=== PATIENT | male | born 1945 | race Caucasian/White ===

== ENCOUNTER 2017-04-08 15:07 | Observation (INO) | payer OTHER ==
[~2017-04-08] VITALS: Ht 180.3 cm; Wt 103.0 kg
[~2017-04-08 15:07] MED LIST: SODIUM CHLORIDE 0.9% 1000ML 1,000 ML IV SCH
[2017-04-08] MEDS ORDERED: PRLSR20 PO (15:23)
[2017-04-08] MEDS ORDERED: GLC850 PO (15:23)
[2017-04-08] MEDS ORDERED: LOSA1TAB38 PO (15:23)
[2017-04-08] MEDS ORDERED: ATOR-26 PO (15:23)
[2017-04-08] MEDS ORDERED: MELO15TA4 PO (15:23)
[2017-04-08] MEDS ORDERED: GLIP5TAB3 PO (15:23)
[2017-04-08] MEDS ORDERED: ASPI81TA28 PO (15:24)
--- NOTE | 2017-04-08 15:27 | DIAGNOSTIC IMAGING REPORT ---
CT SCAN OF THE BRAIN WITHOUT IV CONTRAST CLINICAL HISTORY: Strokelike symptoms. COMPARISON STUDY: No priors. TECHNIQUE: Unenhanced axial CT scan of the brain is performed from the vertex to the skull base. CT DOSE: 765.09 mGycm FINDINGS: Brain parenchyma: There are age-related involutional changes noting [id number] patchy subcortical and periventricular microangiopathic change. There is no hemorrhage, mass effect, or evidence of acute territorial ischemia by CT criteria. Christine-white matter is preserved. No extra-axial fluid collection is seen. Ventricles, sulci, cisterns: Prominent secondary to involutional change. Intracranial vasculature: There is atherosclerotic calcification of the cavernous carotid and vertebral arteries. Calvarium: Unremarkable. Sinuses and mastoids: Mucosal thickening is seen within the ethmoid and sphenoid sinuses. The remaining visualized paranasal sinuses are clear. The mastoid air cells are well pneumatized. Orbits: The bony orbits are grossly intact. IMPRESSION: There is no hemorrhage, mass effect, or evidence of acute territorial ischemia by CT criteria. Electronically signed by: Chin Arnett M.D. 04/08/2017 3:25 PM Dictated Date/Time: 04/08/2017 3:23 PM
[2017-04-08 15:38] LABS: BASO % 0.5 %; BASO ABS # 0.04 K/uL (0-0.2); COMPLETE YES; HEMATOCRIT 45.7 % (42-52); IG% 0.5 %; LYMPH ABS # 1.25 K/uL (1.2-3.4); MEAN CELL VOLUME 90.5 fL (80-100); MEAN CORPUSCULAR HEMOGLOBIN 31.1 pg (25-34); MEAN CORPUSCULAR HGB CONC 34.4 g/dl (32-36); MEAN PLATELET VOLUME 11.6 fL (7.4-10.4); MONO % 9.8 %; NEUT % 69.2 %; PLATELET COUNT 234 K/uL (130-400); RED BLOOD COUNT 5.05 M/uL (4.7-6.1); WHITE BLOOD COUNT 8.35 K/uL (4.8-10.8)
[2017-04-08 15:49] LABS: ISTAT CREATININE 1.5 mg/dl (0.6-1.3); ISTAT IONIZED CALCIUM 1.18 mmol/l (1.12-1.32)
--- NOTE | 2017-04-08 15:49 | DIAGNOSTIC IMAGING REPORT ---
CHEST ONE VIEW PORTABLE HISTORY: 72 years-old Male acute strokelike symptoms. COMPARISON: None available TECHNIQUE: Portable upright AP view of the chest FINDINGS: Cardiac silhouette is enlarged. Subsegmental bibasilar opacities suggest atelectasis. There is no pneumothorax, pleural effusion, focal airspace consolidation or overt pulmonary edema. There is atherosclerosis of the aorta. The bones are grossly intact. IMPRESSION: Mild cardiomegaly without overt pulmonary edema. The above report was generated using voice recognition software. It may contain grammatical, syntax or spelling errors. Electronically signed by: Kendrick Moreno M.D. 04/08/2017 3:48 PM Dictated Date/Time: 04/08/2017 3:47 PM
[2017-04-08 15:58] LABS: BLOOD UREA NITROGEN 32 mg/dl (7-18); BUN/CREATININE RATIO 17.5 (10-20); CALCIUM 8.9 mg/dl (8.5-10.1); CARBON DIOXIDE 27 mmol/L (21-32); CHLORIDE 107 mmol/L (98-107); GLUCOSE 230 mg/dl (70-99); SODIUM 140 mmol/L (136-145)
[2017-04-08 16:00] LABS: PROTHROMBIN TIME (PATIENT) 10.5 SECONDS (9.0-12.0)
[2017-04-08 16:02] LABS: CKMB/CK RATIO 1.6 (0-3.0)
[2017-04-08] MEDS: SODIUM CHLORIDE 0.9% 1000ML 1,000 ML IV SCH (16:27)
[2017-04-08] MEDS ORDERED: ALUMINUM/MAGNESIUM/SIMETH (MAALOX MAX) 30 ML UDC PO PRN (16:30)
[2017-04-08] MEDS ORDERED: MAGNESIUM HYDROXIDE SUSP 30 ML UDC PO PRN (16:30)
[2017-04-08] MEDS ORDERED: ONDANSETRON INJ 2 MG/ML 2 ML VIAL IV PRN (16:30)
[2017-04-08] MEDS ORDERED: PHARMACIST DISCHARGE MED REC CONSULT PRN (16:30)
[2017-04-08] MEDS ORDERED: HydrALAZINE HCL 20 MG/ML VIAL IV. PRN (16:30)
[2017-04-08] MEDS ORDERED: ACETAMINOPHEN 325 MG TAB PO PRN (16:30)
[2017-04-08] MEDS ORDERED: NITROGLYCERIN 0.4 MG SL PER TAB CHARGE SL PRN (16:30)
[2017-04-08] MEDS ORDERED: POLYETHYLENE (MIRALAX) 17 GM PACK PO PRN (16:30)
--- NOTE | 2017-04-08 16:52 | History and Physical ---
History & Physical Date & Time of Service: Apr 08, 2017 at 16:36 Chief Complaint: Stroke Primary Care Physician: No Doctor, Assigned History of Present Illness Source: patient, family (/friend at bedside ), hospital records Patient is a pleasant 72 y/o male, with PMHx of HTN, T2DM, dyslipidemia, h/o TIA , and GERD, who presented to the ED because of stoke-like symptoms. Patient is from [place], [place]; they are here camping and visiting the [facility]. Patient was at the [facility] this afternoon when he started to develop lightheadedness/dizziness. His and family friend then sat the patient on a bench. They noticed he was disoriented and having difficulty speaking. Currently , denies any complaints. /family state patient has been back to baseline since the arrival to ED. He notes he has a h/o TIAs x3-4. Symptoms are similar. Denies any cardiac history, such as TN, a.fib, or other heart arrhythmias- does not follow with a occupational health nurse supervisor. Denies h/o DVT/PE. He has been eating and drinking OK. Admits he does not take his BSG routinely. +numbness to LUE- ongoing issue. Patient denies any fever, chills, sweats, vision changes, CP, palpitations, edema, SOB, wheezing, cough, abdominal pain, nausea, vomiting, diarrhea, urinary symptoms, melena, tingling, weakness, muscle/joint pain, anxiety/depression, active bleeding, or new skin discoloration/changes. Past Medical/Surgical History Medical Problems: HTN T2DM dyslipidemia h/o TIA GERD Surgical history: EGD Family History Denies pertinent family history Social History Smoking Status: Former Smoker Marital Status: Housing status: lives with family Allergies Coded Allergies: Penicillins (Unverified Allergy, Unknown, THROAT CLOSES, 04/08/17) Home Medications Scheduled Aspirin (Aspirin Ec), 81 MG PO QAM Atorvastatin (Lipitor), 80 MG PO HS Glipizide (Glucotrol), 7.5 MG PO BID Losartan Potassium (Cozaar), 50 MG PO DAILY Meloxicam (Meloxicam), 15 MG PO DAILY Metformin HCl (Metformin HCl), 850 MG PO TID Omeprazole (Prilosec), 20 MG PO QAM Physical Exam Vital Signs Date Time Temp Pulse Resp B/P (MAP) Pulse Ox O2 Delivery O2 Flow Rate FiO2 04/08/17 15:41 91 Room Air 04/08/17 15:41 37.1 97 24 163/114 92 Room Air 04/08/17 15:14 96 General Appearance: no apparent distress, + obese Head: normocephalic, atraumatic Eyes: normal inspection, PERRL ENT: hearing grossly normal Neck: supple Respiratory/Chest: lungs clear, normal breath sounds, no respiratory distress, no accessory muscle use Cardiovascular: regular rate, rhythm, no JVD, normal peripheral pulses Abdomen/GI: normal bowel sounds, non tender, soft Back: normal inspection Extremities/Musculoskelatal: no calf tenderness, no pedal edema, normal range of motion Neurologic/Psych: no motor/sensory deficits, alert, normal mood/affect, oriented x 3, + pertinent finding (negative pronator drift, no facial droop ) Skin: normal color, warm/dry, no rash Diagnostics Laboratory Results Results Past 24 Hours Test 04/08/17 15:14 04/08/17 15:27 04/08/17 15:36 Range/Units Bedside Prothrombin Time INR 1.1 0.9-1.1 White Blood Count 8.35 4.8-10.8 K/uL Red Blood Count 5.05 4.7-6.1 M/uL Hemoglobin 15.7 14.0-18.0 g/dL Hematocrit 45.7 42-52 % Mean Corpuscular Volume 90.5 80-100 fL Mean Corpuscular Hemoglobin 31.1 25-34 pg Mean Corpuscular Hemoglobin Concent 34.4 32-36 g/dl Platelet Count 234 130-400 K/uL Mean Platelet Volume 11.6 7.4-10.4 fL Neutrophils (%) (Auto) 69.2 % Lymphocytes (%) (Auto) 15.0 % Monocytes (%) (Auto) 9.8 % Eosinophils (%) (Auto) 5.0 % Basophils (%) (Auto) 0.5 % Neutrophils # (Auto) 5.78 1.4-6.5 K/uL Lymphocytes # (Auto) 1.25 1.2-3.4 K/uL Monocytes # (Auto) 0.82 0.11-0.59 K/uL Eosinophils # (Auto) 0.42 0-0.5 K/uL Basophils # (Auto) 0.04 0-0.2 K/uL RDW Standard Deviation 45.4 36.4-46.3 fL RDW Coefficient of Variation 13.8 11.5-14.5 % Immature Granulocyte % (Auto) 0.5 % Immature Granulocyte # (Auto) 0.04 0.00-0.02 K/uL Prothrombin Time 10.5 9.0-12.0 SECONDS Prothromb Time International Ratio 1.0 0.9-1.1 Activated Partial Thromboplast Time 25.7 21.0-31.0 SECONDS Partial Thromboplastin Ratio 1.0 Sodium Level 140 136-145 mmol/L Potassium Level 5.0 3.5-5.1 mmol/L Chloride Level 107 98-107 mmol/L Carbon Dioxide Level 27 21-32 mmol/L Anion Gap 6.0 18.0 16-25 mmol/L Blood Urea Nitrogen 32 7-18 mg/dl Creatinine 1.80 0.60-1.40 mg/dl Est Creatinine Clear Calc Drug Dose 47.1 ml/min Estimated GFR () 43.2 Estimated GFR (Non- 37.3 BUN/Creatinine Ratio 17.5 10-20 Random Glucose 230 70-99 mg/dl Calcium Level 8.9 8.5-10.1 mg/dl Total Creatine Kinase 74 39-308 U/L Creatine Kinase MB 1.2 0.5-3.6 ng/ml Creatine Kinase MB Ratio 1.6 0-3.0 Troponin I < 0.015 0-0.045 ng/ml Bedside Hemoglobin 16.0 14.0-18.0 g/dl Bedside Hematocrit 47 42-52 % Bedside Sodium 141 135-144 mEq/L Bedside Potassium 4.9 3.3-5.0 mEq/L Bedside Chloride 104 101-112 mEq/L Bedside Total CO2 24 24-31 mEq/l Bedside Blood Urea Nitrogen 34 7-18 mg/dl Bedside Creatinine 1.5 0.6-1.3 mg/dl Bedside Glucose (other) 229 70-99 mg/dl Bedside Ionized Calcium (Anton) 1.18 1.12-1.32 mmol/l Diagnostic Radiology CT SCAN OF THE BRAIN WITHOUT IV CONTRAST CLINICAL HISTORY: Strokelike symptoms. COMPARISON STUDY: No priors. TECHNIQUE: Unenhanced axial CT scan of the brain is performed from the vertex to the skull base. CT DOSE: 765.09 mGycm FINDINGS: Brain parenchyma: There are age-related involutional changes noting [id number] patchy subcortical and periventricular microangiopathic change. There is no hemorrhage, mass effect, or evidence of acute territorial ischemia by CT criteria. Christine-white matter is preserved. No extra-axial fluid collection is seen. Ventricles, sulci, cisterns: Prominent secondary to involutional change. Intracranial vasculature: There is atherosclerotic calcification of the cavernous carotid and vertebral arteries. Calvarium: Unremarkable. Sinuses and mastoids: Mucosal thickening is seen within the ethmoid and sphenoid sinuses. The remaining visualized paranasal sinuses are clear. The mastoid air cells are well pneumatized. Orbits: The bony orbits are grossly intact. IMPRESSION: There is no hemorrhage, mass effect, or evidence of acute territorial ischemia by CT criteria. Electronically signed by: Chin Arnett M.D. 04/08/2017 3:25 PM Dictated Date/Time: 04/08/2017 3:23 PM The status of this report is Signed. Draft = Not yet reviewed or approved by Radiologist. Signed = Reviewed and approved by Radiologist. CHEST ONE VIEW PORTABLE HISTORY: 72 years-old Male acute strokelike symptoms. COMPARISON: None available TECHNIQUE: Portable upright AP view of the chest FINDINGS: Cardiac silhouette is enlarged. Subsegmental bibasilar opacities suggest atelectasis. There is no pneumothorax, pleural effusion, focal airspace consolidation or overt pulmonary edema. There is atherosclerosis of the aorta. The bones are grossly intact. IMPRESSION: Mild cardiomegaly without overt pulmonary edema. The above report was generated using voice recognition software. It may contain grammatical, syntax or spelling errors. Electronically signed by: Kendrick Moreno M.D. 04/08/2017 3:48 PM Dictated Date/Time: 04/08/2017 3:47 PM The status of this report is Signed. Draft = Not yet reviewed or approved by Radiologist. Signed = Reviewed and approved by Radiologist. <AttendingPhy></AttendingPhy> <FamilyPhy>No Doctor, Assigned</FamilyPhy> < PrimaryPhy>No Doctor, Assigned</PrimaryPhy> <UnitNumber>[id number]</UnitNumber> <VisitNumber>[id number] Impression Assessment and Plan Patient is a pleasant 72 y/o male, with PMHx of HTN, T2DM, dyslipidemia, h/o TIA , and GERD, who presented to the ED because of stoke-like symptoms. TIA w/ h/o TIA: - Admit tot tele for cardiac monitoring - Trend cardiac enzymes- initial trop negative - Continue Lipitor 80 mg HS- check lipid panel - ASA 81 mg daily increased to 325 mg daily - Obtain MRI brain, bilateral carotid US, ECHO - Stroke protocol: -- PT/OT and speech evaluation -- Aspiration/fall precautions -- Dysphagia screen, advance diet as tolerated -- Routine neuro checks -- Elevate HOB T2DM: - Hold Metformin and Glipizide - BSG ACHS and sliding insulin scale - Check HgbA1c HTN: - Hold Losartan 50 mg daily due to Cr. 1.80- unsure of baseline - Hydralazine 10 mg IV q6 hrs PRN sbp >180 or dbp >100 ?CKD stage III- unsure of baseline Cr: - IV NSS @ 125 ml/hr - Follow PRP GERD: Protonix- resume Prilosec at discharge DVT prophylaxis: Heparin SQ BID Code Status: LEVEL I, FULL Dispo: From home, lives w/ - no discharge needs anticipated i personally examined pt and verified all luna points w T Ernstk PAC feeling better now - unsteady and trouble w getting words out earlier - similar to prior TIAs. thinks A1c around 8. notes that he believes a lot of his medical problems relate to agent orange exposure in [place]. vitals noted nad breathing unlabored no noted neurologic deficits now skin no rashes no pallor or icterus labs/diagnostics noted, awaiting A1c and lipids TIA - likely intracranial vascular disease. await ongoing monitoring and echo but doubt cardioembolic. suspect relates to small vessel disease and BP, lipids , DM are main culprits - follow for evidence of control or lack thereof and then adjust regimen (and hopefully lifestyle) for better control. given repeated TIAs will transition from asa to plavix. await further input from neuro otheriwse as above VTE Prophylaxis VTE Risk Assessment Done? Y/N: Yes Risk Level: Moderate
[2017-04-08] MEDS ORDERED: IV FLUIDS COMPLETED PRN (17:00)
--- NOTE | 2017-04-08 17:26 | EMERGENCY ROOM VISIT NOTE ---
History Report prepared by Alexander: Shu Mckinney Under the Supervision of: Dr. Hilton Mast D.O. First contact with patient: 15:03 Stated Complaint: STROKE History of Present Illness The patient is a 72 year old male who presents to the Emergency Room with complaints of constant stroke-like symptoms beginning at 1350 today. The patient was walking around the [facility] with his . He states that he began to feel lightheaded and dizzy. states that he became unsteady on his feet and his speech was "thick." His symptoms have improved, but states that he is still not back to baseline. The patient reports left arm numbness which he states is chronic. Pt denies headache, change in vision, chest pain, shortness of breath, vomiting, diarrhea, and urinary symptoms. He was nauseated and received Zofran en route which alleviated his nausea. The patient was brought to the ED by ambulance for further evaluation. He does not take any blood thinners. He has a history of TIAs. Source of History: patient Onset: 1350 Position: other (global) Quality: other (stroke-like) Timing: constant Modifying Factors (Relieving): other (time) Associated Symptoms: + nausea, No headache, No chest pain, No SOB, No vomiting, No diarrhea, No urinary symptoms Note: Pt notes lightheadedness, dizziness, changes in speech. Review of Systems See HPI for pertinent positives & negatives. A total of 10 systems reviewed and were otherwise negative. Past Medical & Surgical Medical Problems: (1) Diabetes mellitus (2) Penicillin allergy (3) TIA (transient ischemic attack) Family History No pertinent history stated. Social History Marital Status: Housing Status: lives with significant other Current/Historical Medications Scheduled Aspirin (Aspirin Ec), 81 MG PO QAM Atorvastatin (Lipitor), 80 MG PO HS Glipizide (Glucotrol), 7.5 MG PO BID Losartan Potassium (Cozaar), 50 MG PO DAILY Meloxicam (Meloxicam), 15 MG PO DAILY Metformin HCl (Metformin HCl), 850 MG PO TID Omeprazole (Prilosec), 20 MG PO QAM Allergies Coded Allergies: Penicillins (Unverified Allergy, Unknown, THROAT CLOSES, 04/08/17) Physical Exam Vital Signs Date Time Temp Pulse Resp B/P (MAP) Pulse Ox O2 Delivery O2 Flow Rate FiO2 04/08/17 17:00 87 18 154/107 90 Room Air 04/08/17 16:45 89 18 169/106 93 Room Air 04/08/17 16:32 89 18 177/113 92 Room Air 04/08/17 16:19 92 18 156/98 92 Room Air 04/08/17 16:00 90 20 150/103 91 Room Air 04/08/17 15:45 93 20 182/121 91 Room Air 04/08/17 15:41 91 Room Air 04/08/17 15:41 37.1 97 24 163/114 92 Room Air 04/08/17 15:40 90 20 175/109 92 Room Air 04/08/17 15:31 90 92 04/08/17 15:25 90 179/104 04/08/17 15:14 96 04/08/17 15:11 163/114 Physical Exam GENERAL: alert, disheveled, well appearing, well nourished, no distress, non- toxic EYE EXAM: normal conjunctiva, PERRL and EOM's intact OROPHARYNX: no exudate, no erythema, lips, buccal mucosa, and tongue normal and mucous membranes are moist NECK: supple, no nuchal rigidity, no adenopathy, non-tender LUNGS: Clear to auscultation. Normal chest wall mechanics HEART: no murmurs, S1 normal and S2 normal ABDOMEN: abdomen soft, non-tender, normo-active bowel sounds, no masses, no rebound or guarding. BACK: Back is symmetrical on inspection and there is no deformity, no midline tenderness, no CVA tenderness. SKIN: no rashes and no bruising UPPER EXTREMITIES: upper extremities are grossly normal. LOWER EXTREMITIES: No pitting edema. NEURO EXAM: Normal sensorium, slurred speech with intermittent word-finding, cranial nerves otherwise II-XII intact, no weakness of arms, no weakness of legs. No drift. Finger to nose intact. Gross sensation intact. Medical Decision & Procedures ER Provider Diagnostic Interpretation: Radiology results as stated below per my review and the radiologist's interpretation: CT SCAN OF THE BRAIN WITHOUT IV CONTRAST CLINICAL HISTORY: Strokelike symptoms. COMPARISON STUDY: No priors. TECHNIQUE: Unenhanced axial CT scan of the brain is performed from the vertex to the skull base. CT DOSE: 765.09 mGycm FINDINGS: Brain parenchyma: There are age-related involutional changes noting [id number] patchy subcortical and periventricular microangiopathic change. There is no hemorrhage, mass effect, or evidence of acute territorial ischemia by CT criteria. Christine-white matter is preserved. No extra-axial fluid collection is seen. Ventricles, sulci, cisterns: Prominent secondary to involutional change. Intracranial vasculature: There is atherosclerotic calcification of the cavernous carotid and vertebral arteries. Calvarium: Unremarkable. Sinuses and mastoids: Mucosal thickening is seen within the ethmoid and sphenoid sinuses. The remaining visualized paranasal sinuses are clear. The mastoid air cells are well pneumatized. Orbits: The bony orbits are grossly intact. IMPRESSION: There is no hemorrhage, mass effect, or evidence of acute territorial ischemia by CT criteria. Electronically signed by: Chin Arnett M.D. 04/08/2017 3:25 PM Dictated Date/Time: 04/08/2017 3:23 PM CHEST ONE VIEW PORTABLE HISTORY: 72 years-old Male acute strokelike symptoms. COMPARISON: None available TECHNIQUE: Portable upright AP view of the chest FINDINGS: Cardiac silhouette is enlarged. Subsegmental bibasilar opacities suggest atelectasis. There is no pneumothorax, pleural effusion, focal airspace consolidation or overt pulmonary edema. There is atherosclerosis of the aorta. The bones are grossly intact. IMPRESSION: Mild cardiomegaly without overt pulmonary edema. The above report was generated using voice recognition software. It may contain grammatical, syntax or spelling errors. Electronically signed by: Kendrick Moreno M.D. 04/08/2017 3:48 PM Dictated Date/Time: 04/08/2017 3:47 PM Laboratory Results 04/08/17 15:27 Red Blood Count 5.05, Mean Corpuscular Volume 90.5, Mean Corpuscular Hemoglobin 31.1, Mean Corpuscular Hemoglobin Concent 34.4, Mean Platelet Volume 11.6, Neutrophils (%) (Auto) 69.2, Lymphocytes (%) (Auto) 15.0, Monocytes (%) (Auto) 9.8, Eosinophils (%) (Auto) 5.0, Basophils (%) (Auto) 0.5, Neutrophils # (Auto) 5.78, Lymphocytes # (Auto) 1.25, Monocytes # (Auto) 0.82, Eosinophils # (Auto) 0.42, Basophils # (Auto) 0.04 04/08/17 15:27 Test 04/08/17 15:14 04/08/17 15:27 04/08/17 15:36 Bedside Prothrombin Time INR 1.1 (0.9-1.1) White Blood Count 8.35 K/uL (4.8-10.8) Red Blood Count 5.05 M/uL (4.7-6.1) Hemoglobin 15.7 g/dL (14.0-18.0) Hematocrit 45.7 % (42-52) Mean Corpuscular Volume 90.5 fL (80-100) Mean Corpuscular Hemoglobin 31.1 pg (25-34) Mean Corpuscular Hemoglobin Concent 34.4 g/dl (32-36) Platelet Count 234 K/uL (130-400) Mean Platelet Volume 11.6 fL (7.4-10.4) Neutrophils (%) (Auto) 69.2 % Lymphocytes (%) (Auto) 15.0 % Monocytes (%) (Auto) 9.8 % Eosinophils (%) (Auto) 5.0 % Basophils (%) (Auto) 0.5 % Neutrophils # (Auto) 5.78 K/uL (1.4-6.5) Lymphocytes # (Auto) 1.25 K/uL (1.2-3.4) Monocytes # (Auto) 0.82 K/uL (0.11-0.59) Eosinophils # (Auto) 0.42 K/uL (0-0.5) Basophils # (Auto) 0.04 K/uL (0-0.2) RDW Standard Deviation 45.4 fL (36.4-46.3) RDW Coefficient of Variation 13.8 % (11.5-14.5) Immature Granulocyte % (Auto) 0.5 % Immature Granulocyte # (Auto) 0.04 K/uL (0.00-0.02) Prothrombin Time 10.5 SECONDS (9.0-12.0) Prothromb Time International Ratio 1.0 (0.9-1.1) Activated Partial Thromboplast Time 25.7 SECONDS (21.0-31.0) Partial Thromboplastin Ratio 1.0 Est Creatinine Clear Calc Drug Dose 47.1 ml/min Estimated GFR () 43.2 Estimated GFR (Non- 37.3 BUN/Creatinine Ratio 17.5 (10-20) Calcium Level 8.9 mg/dl (8.5-10.1) Total Creatine Kinase 74 U/L (39-308) Creatine Kinase MB 1.2 ng/ml (0.5-3.6) Creatine Kinase MB Ratio 1.6 (0-3.0) Troponin I < 0.015 ng/ml (0-0.045) Bedside Hemoglobin 16.0 g/dl (14.0-18.0) Bedside Hematocrit 47 % (42-52) Bedside Sodium 141 mEq/L (135-144) Bedside Potassium 4.9 mEq/L (3.3-5.0) Bedside Chloride 104 mEq/L (101-112) Bedside Total CO2 24 mEq/l (24-31) Anion Gap 18.0 mmol/L (16-25) Bedside Blood Urea Nitrogen 34 mg/dl (7-18) Bedside Creatinine 1.5 mg/dl (0.6-1.3) Bedside Glucose (other) 229 mg/dl (70-99) Bedside Ionized Calcium (Anton) 1.18 mmol/l (1.12-1.32) Laboratory results per my review. Medications Administered Medications (Trade) Dose Ordered Sig/Gela Route Start Time Stop Time Status Last Admin Dose Admin Sodium Chloride 1,000 ml @ 50 mls/hr Q20H IV 04/08/17 15:03 05/08/17 15:02 04/08/17 15:03 50 MLS/HR ECG Indication: altered mental status Rate (beats per minute): 93 Rhythm: normal sinus Findings: left axis deviation, no ectopy ED Course ED COURSE: Vital signs were reviewed and showed hypertensive. The patients medical record was reviewed The above diagnostic studies were performed and reviewed. ED treatments and interventions as stated above. 1501: I took medical command prior to the patient's arrival in the department. 1503: NSS 1000 ml @ 50 mls/hr IV 1508: The patient was evaluated in room B1. A complete history and physical examination was performed. 1516: A stroke alert was called in the ED at this time. 1527: I discussed the case with Dr. Munguia of neurology at [facility]. He will evaluate the patient via Tele-Stroke. 1529: I updated the patient and his . 1604: I spoke with Dr. Munguia again. He is recommending an MRI. 1606: Upon reevaluation, the patient is resting comfortably. I discussed my findings with the patient and his . They understand and agree with the treatment plan. Based on the patients age, coexisting illnesses, exam and lab findings the decision to treat as an inpatient was made. The patient remained stable while under my care. The patient will be evaluated for further management. 1608: I reviewed the patient's case with Dr. Uribe. The [facility] will evaluate the patient for further management. Medical Decision Differential Diagnosis includes but is not limited to ischemic Stroke, hemorrhagic stroke, bells palsy, mass, neoplasm, migraine headache, seizure, subarachnoid hemorrhage, TIA, and transient global amnesia. Patient is a 72-year-old male who presents the ER with difficulty walking and a fascia which started at 1350. Patient was brought in by EMS. I received medical command. Report was symptoms were improved/improving. On my exam patient still had word finding and consequently a stroke alert was called. He was taken directly to CT. CT said no bleed. Stressed with neurology. They evaluated him. His symptoms completely resolved. CBC along with BMP was unremarkable with the exception of creatinine 1.8. Troponin was negative. Patient was updated regards to his findings. Neurology recommended observation overnight with MRIs. I felt this was reasonable. Discussed case with internal medicine and patient was admitted as an inpatient. Medication Reconcilliation Current Medication List: was personally reviewed by me Blood Pressure Screening Patient's blood pressure: Elevated blood pressure Blood pressure disposition: Elevated BP felt to be situational Consults Time Called: 1525 Consulting Physician: Dr. Munguia Returned Call: 1527 I discussed the case with Dr. Munguia of neurology at [facility]. He will evaluate the patient via Tele-Stroke. Additional Consults: Time Called: 1604 Consulted Physician: Dr. Munguia Returned Call: 1604 Additional Comments: I spoke with Dr. Munguia again. He is recommending an MRI. Time Called: 1606 Consulted Physician: Dr. Uribe Returned Call: 1608 Additional Comments: I reviewed the patient's case with Dr. Uribe. The [facility] will evaluate the patient for further management. Impression Primary Impression: TIA (transient ischemic attack) Additional Impression: VEENA (acute kidney injury) Scribe Attestation The scribe's documentation has been prepared under my direction and personally reviewed by me in its entirety. I confirm that the note above accurately reflects all work, treatment, procedures, and medical decision making performed by me. Departure Information Dispostion Being Evaluated By Hospitalist Referrals No Doctor, Assigned (PCP) Stroke History Time Last Known Well 1350 Stroke t-PA Criteria Reviewed Does NOT meet criteria for t-PA Reason t-PA Not Given Treatment not indicated Strict Exclusion Criteria Complete resolution of symptoms (NI Problem Qualifiers Primary Impression: TIA (transient ischemic attack) Transient cerebral ischemia type: unspecified Qualified Codes: G45.9 - Transient cerebral ischemic attack, unspecified
[2017-04-08 17:57] VITALS: O2SAT 95; O2SAT 96
[2017-04-08 18:08] VITALS: BP 153/99; PULSE 88; TEMP 36.8; O2SAT 95
[2017-04-08 18:10] VITALS: BP 153/99; PULSE 88; TEMP 36.8; O2SAT 95; Ht 180.3 cm; Wt 103.0 kg
--- NOTE | 2017-04-08 18:18 | DIAGNOSTIC IMAGING REPORT ---
ORBITS FOR MRI CLINICAL HISTORY: 72 years-old Male presenting with MRI CLEARANCE/CLINICAL RESEARCH TECH. TECHNIQUE: 3 views of the orbits were obtained. COMPARISON: CT head on 04/08/2017. FINDINGS: No radiopaque foreign body projects over the orbits. Bony orbits grossly intact. Paranasal sinuses grossly clear. Visualized portion of the calvarium intact. IMPRESSION: No intraorbital metallic foreign body to preclude MRI exam. Electronically signed by: Santos Adams M.D. 04/08/2017 6:16 PM Dictated Date/Time: 04/08/2017 6:15 PM
[2017-04-08] MEDS ORDERED: GADAVIST IV PRN (19:00)
--- NOTE | 2017-04-08 19:02 | DIAGNOSTIC IMAGING REPORT ---
BRAIN COMBO CLINICAL HISTORY: 72 years-old Male presenting with Stroke, dizzy, confused, difficulty walking, slurred speech, history of TIAs. TECHNIQUE: Multisequence, multiplanar MR imaging of the brain was performed before and after the administration of intravenous contrast. IV contrast: 10 mL of Gadavist. COMPARISON: CT head performed the same day. FINDINGS: Ventricles and sulci normal in size. Periventricular and subcortical white matter T2/FLAIR hyperintensity nonspecific but likely indicative of chronic small vessel ischemic change. Bilateral old lacunar infarcts in the basal ganglia. No mass effect or midline shift. No hemorrhage or acute territorial infarct. No extra-axial fluid collection. T2 skull base flow voids demonstrate atherosclerotic narrowing of the cavernous portion of the right internal carotid artery. Minimal mucosal thickening in the sphenoid sinus. No abnormal parenchymal enhancement. Bone marrow signal intensity within the calvarium within normal limits. IMPRESSION: 1. No acute intracranial abnormality. No abnormal enhancement. 2. Chronic small vessel ischemic change and old lacunar infarcts in the bilateral basal ganglia. 3. Atherosclerotic narrowing of the cavernous portion of the right internal carotid artery. Electronically signed by: Santos Adams M.D. 04/08/2017 7:01 PM Dictated Date/Time: 04/08/2017 6:55 PM
[2017-04-08] MEDS ORDERED: GLUCOSE 10 TABS/TUBE PO PRN (19:15)
[2017-04-08] MEDS ORDERED: DEXTROSE 50% 50 ML SYR IV PRN (19:15)
[2017-04-08] MEDS ORDERED: GLUCAGON FOR INJ 1 MG VIAL SQ PRN (19:15)
[2017-04-08] MEDS ORDERED: GLUCOSE 40% GEL 15 GM TUBE PO PRN (19:15)
[2017-04-08 19:55] VITALS: BP 173/97; PULSE 74; TEMP 36.6; O2SAT 96
[2017-04-08 20:00] VITALS: O2SAT 96
[2017-04-08] MEDS: HEPARIN SOD 5000 UNIT/0.5 ML CARP SQ SCH (20:11)
--- NOTE | 2017-04-08 20:18 | DIAGNOSTIC IMAGING REPORT ---
CAROTID DOPPLER NECK ART CLINICAL HISTORY: 72 years-old Male presenting with Stroke. TECHNIQUE: Real-time grayscale and color and spectral Doppler ultrasound imaging of the bilateral carotid arteries was performed. NASCET criteria was used in evaluating this study. COMPARISON: None. FINDINGS: Right: Common carotid: Patent. Peak systolic velocity 78 cm/s. Internal carotid artery: Patent. Peak systolic velocity 85 cm/s. External carotid artery: Patent. Peak systolic velocity 82 cm/s. Systolic ratio: 1.1. Left: Common carotid: Minimal atherosclerosis of the left carotid bulb. Peak systolic velocity 84 cm/s. Internal carotid artery: Minimal atherosclerosis of the distal left ICA. Peak systolic velocity 62 cm/s. External carotid artery: Patent. Peak systolic velocity 315 cm/s. Systolic ratio: 0.74. Bilateral antegrade flow within the vertebral arteries. Reference ranges: Stenosis measurements are compared velocity parameters. Normal ICA peak systolic velocity less than 125 cm/s. Normal ICA peak systolic velocity to common carotid artery velocity ratio is less than 2: less than 2 equates to less than 50% stenosis, 2-4 equates to 50-69% stenosis, greater than 4 equates to greater than or equal to 70% stenosis. Normal ICA end-diastolic velocity less than 40. Blood pressure Brachial: Right: 149/94 mmHg, Left: 141 mmHg. IMPRESSION: No hemodynamically significant stenosis seen within the carotid arteries. Electronically signed by: Santos Adams M.D. 04/08/2017 8:17 PM Dictated Date/Time: 04/08/2017 8:14 PM
[2017-04-08] MEDS ORDERED: CLOPIDOGREL BISULFATE 75 MG TAB PO ONE (21:00)
[2017-04-08] MEDS ORDERED: ATORVASTATIN 40 MG TAB PO SCH (21:00)
[2017-04-08] MEDS: INSULIN ASPART 100 UNITS/ML 3 ML PEN SC SCH (21:22)
[2017-04-08 23:30] VITALS: BP 162/93; PULSE 70; TEMP 36.5; O2SAT 95
[2017-04-09 03:05] VITALS: BP 172/94; PULSE 72; TEMP 36.6; O2SAT 97
[2017-04-09] MEDS: SODIUM CHLORIDE 0.9% 1000ML 1,000 ML IV SCH ×2 (03:46→08:31)
[2017-04-09 05:48] VITALS: BP 152/79
[2017-04-09 06:52] LABS: ESTIMATED AVERAGE GLUCOSE 169 mg/dl; HA1C FLAG Normal (Normal)
[2017-04-09 07:24] LABS: BASO % 0.7 %; BASO ABS # 0.05 K/uL (0-0.2); COMPLETE YES; EOS % 7.7 %; HEMATOCRIT 44.4 % (42-52); IG% 0.5 %; LYMPH % 22.1 %; LYMPH ABS # 1.67 K/uL (1.2-3.4); MEAN CELL VOLUME 90.2 fL (80-100); MEAN CORPUSCULAR HEMOGLOBIN 29.7 pg (25-34); MEAN CORPUSCULAR HGB CONC 32.9 g/dl (32-36); MEAN PLATELET VOLUME 11.9 fL (7.4-10.4); MONO % 10.4 %; NEUT % 58.6 %; PLATELET COUNT 219 K/uL (130-400); RED BLOOD COUNT 4.92 M/uL (4.7-6.1); WHITE BLOOD COUNT 7.56 K/uL (4.8-10.8)
[2017-04-09 07:46] VITALS: BP 159/81; PULSE 74; TEMP 36.4; O2SAT 94
[2017-04-09 07:47] LABS: BLOOD UREA NITROGEN 24 mg/dl (7-18); BUN/CREATININE RATIO 19.7 (10-20); CALCIUM 8.5 mg/dl (8.5-10.1); CARBON DIOXIDE 26 mmol/L (21-32); CHLORIDE 111 mmol/L (98-107); GLUCOSE 94 mg/dl (70-99); POTASSIUM 4.5 mmol/L (3.5-5.1); SODIUM 141 mmol/L (136-145)
[2017-04-09 07:50] LABS: CHOLESTEROL 83 mg/dl (0-200); HDL CHOLESTEROL 41 mg/dl; LDL CHOLESTEROL CALCULATED 28 mg/dl; TRIGLYCERIDES 72 mg/dl (0-150); VERY LOW DENSITY LIPOPROT CALC 14 mg/dl
[2017-04-09] MEDS: INSULIN ASPART 100 UNITS/ML 3 ML PEN SC SCH ×2 (08:26→12:42)
[2017-04-09] MEDS: HEPARIN SOD 5000 UNIT/0.5 ML CARP SQ SCH (08:29)
[2017-04-09] MEDS ORDERED: ASPIRIN 81 MG ECTAB PO SCH (09:00)
[2017-04-09] MEDS ORDERED: CLOPIDOGREL BISULFATE 75 MG TAB PO SCH (09:00)
[2017-04-09] MEDS ORDERED: PANTOprazole SOD 40 MG TAB PO SCH (09:00)
[2017-04-09] MEDS ORDERED: ASPIRIN 325 MG ECTAB PO SCH (09:00)
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
[2017-04-09] MEDS ORDERED: LPT40 PO (11:56)
[2017-04-09] MEDS ORDERED: PLV75 PO (11:56)
[2017-04-09 11:59] VITALS: BP 163/95; PULSE 79; TEMP 36.8; O2SAT 95
[2017-04-09] MEDS ORDERED: AMLODIPINE BESYLATE 5 MG TAB PO ONE (12:00)
--- NOTE | 2017-04-09 12:00 | Discharge Instructions ---
Discharge Instructions Date of Service Apr 09, 2017. Admission Reason for Admission: TIA Discharge Discharge Diagnosis / Problem: Transient ischemic attack Discharge Goals Goal(s): Decrease discomfort, Improve function, Increase independence, Improve disease control, Learn about illness, Diagnostic testing, Prevent Disease Progression Activity Recommendations Activity Limitations: resume your previous activity Exercise/Sports Limitations: as tolerated Shower/Bathe: no limitations . Instructions / Follow-Up Instructions / Follow-Up Patient to be discharged home Likely patient presented with transient ischemic attack Please note addition of norvasc 10 mg tablet to take once daily for better blood pressure control Also note to stop taking aspirin and to take plavix 75 mg one tablet daily Cholesterol was actually too low, please note decrease in dosage to 40 mg tablet once daily, prescription sent to pharmacy Please follow up with primary care provider at the [facility] in 1-2 weeks If worsening pain, numbness, weakness, chest pain, visual changes, trouble swallowing, shortness of breath please report to ER Risk Factors for Stroke: You can reduce your chances of stroke by working with your medical provider to adopt a healthy lifestyle. Some specific ways to lower your chance of stroke are: * If you are a smoker, now is the time to stop smoking cigarettes * If you are diabetic, improve the control of your blood sugars * Avoid excessive amounts of alcohol * Control high blood pressure * Lose weight if you are overweight * Be sure to lead an active lifestyle * Eat a healthy diet low in salt, cholesterol and fat You should know about other risk factors for stroke that you are unable to control. These include: * Age 55 years or older * Male gender * Certain racial groups: , or / * Family History of Stroke, Mini stroke or Heart Attack * Sickle Cell Disease Follow Up: It is important for you to keep your follow up appointments with your medical provider. Current Hospital Diet Patient's current hospital diet: AHA Diet (Heart Healthy), Diabetes Type 2 Diet Discharge Diet Recommended Diet: Diabetes Type 2 Diet Pending Studies Studies pending at discharge: no Laboratory Results Hemoglobin A1c Test 04/08/17 15:27 Range/Units Estimated Average Glucose 169 mg/dl Hemoglobin A1c 7.5 H 4.5-5.6 % Lipid Panel Test 04/09/17 06:34 Range/Units Triglycerides Level 72 0-150 mg/dl Cholesterol Level 83 0-200 mg/dl HDL Cholesterol 41 mg/dl Cholesterol/HDL Ratio 2.0 LDL Cholesterol, Calculated 28 mg/dl Medical Emergencies . Who to Call and When: Medical Emergencies: Call 911 immediately if you experience any of the following warning signs and symptoms of Stroke: * Sudden numbness or weakness of the face, arm or leg, especially on one side of the body * Sudden confusion, trouble speaking or understanding * Sudden trouble seeing in one or both eyes * Sudden trouble walking, dizziness, loss of balance or coordination * Sudden severe headache with no cause Do not delay calling 911 if you experience any warning signs or symptoms of a stroke. Delay in seeking medical attention may affect what treatments can be given to you. . Non-Emergent Contact Non-Emergency issues call your: Primary Care Provider Call Non-Emergent contact if: you have any medication questions . . "Provider Documentation" section prepared by Gurvinder Rhodes. . Stroke Core Measures Reason no t-PA for Stroke: Treatment not indicated Reason no antithrom by day 2: Treatment provided - N/A Reason no antithrom at D/C: Treatment provided - N/A Reason no statin at D/C: Treatment provided - N/A Reason no anticoag w/a fib: Treatment provided - N/A VTE Core Measure Inpt VTE Proph given/why not?: Other Anticoagulation (plavix)
[2017-04-09 12:55] VITALS: BP 163/95; PULSE 79; TEMP 36.8; O2SAT 95
[2017-04-09] MEDS ORDERED: AMLO10TA4 PO (13:04)
--- NOTE | 2017-04-09 13:29 | Pharmacy Progress Note ---
Pharmacist Stroke Counseling Date of Service Apr 09, 2017. Scope Pharmacy has been consulted to provide medication discharge counseling for this patient admitted with transient ischemic attack as per the Pharmacist Discharge Counseling for Stroke Patients Protocol. Medications on Discharge New Medications: Amlodipine Besylate (Norvasc) 10 Mg Tab 1 TAB PO DAILY for 30 Days, #30 TAB 5 Refills Atorvastatin (Atorvastatin Calcium) 40 Mg Tab 40 MG PO DAILY, #30 TABS Clopidogrel Bisulfate (Clopidogrel) 75 Mg Tab 75 MG PO QAM for 30 Days, #30 TAB Continued Medications: Glipizide (Glucotrol) 5 Mg Tab 7.5 MG PO BID, TAB Losartan Potassium (Cozaar) 100 Mg Tab 50 MG PO DAILY, TAB Meloxicam (Meloxicam) 15 Mg Tab 15 MG PO DAILY Metformin HCl (Metformin HCl) 850 Mg Tab 850 MG PO TID Omeprazole (Prilosec) 20 Mg Capcr 20 MG PO QAM, CAP Discontinued Medications: Aspirin (Aspirin Ec) 81 Mg Tab 81 MG PO QAM Atorvastatin (Lipitor) 80 Mg Tab 80 MG PO HS, TAB Action The above medications, specifically ones for stroke treatment/prophylaxis, have been reviewed in detail with the patient and/or 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 This includes indication, common adverse reactions, drug interactions, and medication administration. Medication counseling has been employed using the teach-back method to ensure understanding. Outcome The patient and his have demonstrated understanding of the medications. Please note, they are aware that the pharmacist will call them within 72 hours post-discharge to confirm that the appropriate medications are being taken and answer any further medication related questions the patient might have at that time. Contact information Individual to be contacted: Polly Relationship to patient: Phone number: [phone] Best time to call: after 11 or 12 pm on Thursday 04/12 Additional comments: Spoke to patient and his , Polly about his new meds for stroke, mentioned that he is starting Norvasc for BP and to stop taking ASA. I discussed why he should be on them, side effects and when to take them. I gave his the handout that explains these meds. had questions about if he would get discharged on home-packs of the new meds [facility] 10 [facility] to get them from [facility]. I talked to the nurse and the nurse said there were 3 new prescriptions for Amlodipine, Plavix and Atorvastatin 40 mg that he will be giving to the patient for a 30 day supply. I went back and told pt's to get these filled at a local pharmacy and when they see their PCP to ask for new [facility] to [facility]. The agreed to this plan. I reminded them in the end that we would call on Wednesday to talk further about the meds. Thank you for allowing pharmacy to be involved in the care of this patient. Please call [phone] with any additional questions
--- NOTE | 2017-04-09 16:11 | Discharge Summary ---
Discharge Summary Date of Service Apr 09, 2017. Discharge Summary Admission Date: Apr 08, 2017 at 16:35 Discharge Date: Apr 09, 2017 Discharge Disposition: Home Principal Diagnosis: TIA Consultations: Neurology Medication Reconciliation New Medications: Amlodipine Besylate (Norvasc) 10 Mg Tab 1 TAB PO DAILY for 30 Days, #30 TAB 5 Refills Atorvastatin (Atorvastatin Calcium) 40 Mg Tab 40 MG PO DAILY, #30 TABS Clopidogrel Bisulfate (Clopidogrel) 75 Mg Tab 75 MG PO QAM for 30 Days, #30 TAB Continued Medications: Glipizide (Glucotrol) 5 Mg Tab 7.5 MG PO BID, TAB Losartan Potassium (Cozaar) 100 Mg Tab 50 MG PO DAILY, TAB Meloxicam (Meloxicam) 15 Mg Tab 15 MG PO DAILY Metformin HCl (Metformin HCl) 850 Mg Tab 850 MG PO TID Omeprazole (Prilosec) 20 Mg Capcr 20 MG PO QAM, CAP Discontinued Medications: Aspirin (Aspirin Ec) 81 Mg Tab 81 MG PO QAM Atorvastatin (Lipitor) 80 Mg Tab 80 MG PO HS, TAB Discharge Exam Review of Systems: Constitutional: No fever, No chills, No sweats, No weakness Eyes: No worsening of vision, No eye pain, No redness, No discharge, No diplopia Respiratory: No cough, No sputum, No wheezing, No shortness of breath, No dyspnea on exertion Cardiovascular: No chest pain, No orthopnea, No PND, No edema Abdomen: No pain, No nausea, No vomiting, No diarrhea Musculoskeletal: No joint pain, No muscle pain, No swelling, No calf pain Genitourinary - Male: No hematuria, No dysuria, No urinary frequency, No urinary urgency Psychiatric: No depression symptoms, No anhedonism, No anxiety, No insomnia Integumentary: No rash, No itch Physical Exam: General Appearance: WD/WN, no apparent distress Eyes: normal inspection, PERRL, EOMI, sclerae normal Neck: supple, no adenopathy, thyroid normal, no JVD Respiratory/Chest: chest non-tender, lungs clear, normal breath sounds, no respiratory distress Cardiovascular: regular rate, rhythm, no edema, no gallop, no JVD Abdomen / GI: normal bowel sounds, non tender, soft, no organomegaly Extremities: normal inspection, no calf tenderness, normal capillary refill , no pedal edema Neurologic/Psychiatric: no motor/sensory deficits, alert, normal mood/affect , oriented x 3 Skin: normal color, warm/dry, no rash Lymphatic: no adenopathy Hospital Course Patient is a pleasant 72 y/o male, with PMHx of HTN, T2DM, dyslipidemia, h/o TIA , and GERD, who presented to the ED because of stoke-like symptoms. TIA w/ h/o TIA: - Admit to tele for cardiac monitoring - Cardiac enzymes x 3 sets WNL - Lipid panel very low cholesterol dec Lipitor 80 mg HS to 40 mg PO HS - Dced ASA 81 mg daily and started on plavix 75 mg PO daily instead - Due to elev BP, also dced home on norvasc 10 mg PO daily - Obtain MRI brain, bilateral carotid US, ECHO unremarkable - Appreciate neuro recs T2DM: - Hold Metformin and Glipizide - BSG ACHS and sliding insulin scale - HgbA1c 7.5 HTN: - Hold Losartan 50 mg daily due to Cr. 1.80- unsure of baseline - Hydralazine 10 mg IV q6 hrs PRN sbp >180 or dbp >100 - Added norvasc 10 mg PO daily ?CKD stage III- unsure of baseline Cr: 1.8-->1.5 on DC - IV NSS @ 125 ml/hr - Follow PRP GERD: Protonix- resume Prilosec at discharge DVT prophylaxis: Heparin SQ BID Code Status: LEVEL I, FULL Total Time Spent: Greater than 30 minutes This includes examination of the patient, discharge planning, medication reconciliation, and communication with other providers. Discharge Instructions Please refer to the electronic Patient Visit Report (Discharge Instructions) for additional information.
[2017-04-10] MEDS ORDERED: AMLODIPINE BESYLATE 5 MG TAB PO SCH (09:00)
--- NOTE | 2017-04-12 14:01 | Pharmacy Progress Note ---
Pharmacist Post D/C Phone Note Date of phone call: Apr 12, 2017. Individual with whom pharmacist spoke to: Patient's , Polly The following questions were reviewed during the phone call with responses listed below each: Can you tell me the medications that you are currently taking as well as when and how you take each medication? Medications Dose Route/Sig Max Daily Dose Days Date Category Norvasc (Amlodipine Besylate) 10 Mg Tab 1 Tab PO DAILY 30 04/09/17 Rx Atorvastatin Calcium (Atorvastatin) 40 Mg Tab 40 Mg PO DAILY 04/09/17 Rx Clopidogrel (Clopidogrel Bisulfate) 75 Mg Tab 75 Mg PO QAM 30 04/09/17 Rx Glucotrol (Glipizide) 5 Mg Tab 7.5 Mg PO BID 04/08/17 Reported Metformin HCl 850 Mg Tab 850 Mg PO TID 04/08/17 Reported Prilosec (Omeprazole) 20 Mg Capcr 20 Mg PO QAM 04/08/17 Reported Cozaar (Losartan Potassium) 100 Mg Tab 50 Mg PO DAILY 04/08/17 Reported Meloxicam 15 Mg Tab 15 Mg PO DAILY 04/08/17 Reported When have you missed any doses of your medications? - No missed doses What side effects are you having from your medications? - None. Has some shoulder pain but this has been ongoing and is a result of work injury What questions do you have about your medications? - None What problems are you having obtaining your medications? - None, was able to get all 3 new ones filled at [facility] and [facility] When is your next appointment with your primary care doctor? - 04/13 @ 9 am with JUDE Grant at an Urgent Care in [place] (phone # [phone]) until they follow-up with their [place] physician Additional comments: - I told the patient's , Polly, that there was an interaction between the clopidogrel (new medication) and his omeprazole in which the omeprazole could reduce the effectiveness. Polly gave me the phone number of JUDE Grant at the urgent care since they would be seeing him tomorrow. I called their office and spoke with a nurse who was going to relay the information to Jesse. I recommended that the patient be switched to another PPI, pantoprazole or lansoprazole, depending on the insurance coverage, as these do not have the significant interaction that omeprazole has with clopidogrel. As per the Pharmacist Discharge Counseling for Stroke Patients Protocol, this phone call has been completed within 72 hours of discharge. Thank you for allowing us to be involved in the care of this patient.
== END 2017-04-09 14:14 | disposition home or self-care (01) ==
LOC: C.EDB 15:09 → C.2T 16:35 → ENRESERV 16:56
PROVIDERS: ADMIT Family Medicine; ATTEND Hospitalist
DX: G45.9 Transient cerebral ischemic attack, unspecified (principal); I65.21 Occlusion and stenosis of right carotid artery; I10 Essential (primary) hypertension; E11.9 Type 2 diabetes mellitus without complications; E78.5 Hyperlipidemia, unspecified; Z79.899 Other long term (current) drug therapy; Z87.891 Personal history of nicotine dependence